=== PATIENT | female | born 1945 | race Caucasian/White ===

== ENCOUNTER 2016-07-20 10:28 | Outpatient (CLI) | payer MEDICARE, OTHER | END 2016-07-20 10:29 | disposition home or self-care (01) | DX: E11.29 Type 2 diabetes mellitus with other diabetic kidney complication (principal); E78.1 Pure hyperglyceridemia ==

== ENCOUNTER 2016-08-04 15:06 | Outpatient (CLI) | payer MEDICARE, OTHER | END 2016-08-04 15:07 | disposition home or self-care (01) | DX: N18.3 Chronic kidney disease, stage 3 (moderate) (principal); Q61.02 Congenital multiple renal cysts ==

== ENCOUNTER 2017-04-02 15:26 | Emergency (ER) | payer MEDICARE, OTHER ==
[2017-04-02] MEDS ORDERED: SODIUM CHLORIDE 0.9% 1,000 ML IV ONE (16:22)
[2017-04-02] MEDS ORDERED: HYDROmorphone 1 MG/ML SYRINGE IVP STA (16:22)
[2017-04-02 16:24] LABS: BASOPHILS # (AUTO) 0.1 10^3/uL (0.0-0.1); BASOPHILS % (AUTO) 0.9 %; EOSINOPHILS # (AUTO) 0.2 10^3/uL (0.0-0.7); HCT - HEMATOCRIT 37.6 % (37.0-47.0); HGB - HEMOGLOBIN 12.6 g/dL (12.0-16.0); LYMPHOCYTES # (AUTO) 2.5 10^3/uL (1.5-3.5); LYMPHOCYTES % (AUTO) 23.1 %; MEAN CORPUSCULAR HEMOGLOBIN 30.6 pg (27.0-31.0); MEAN CORPUSCULAR HGB CONC 33.5 g/dL (32.0-36.0); MEAN CORPUSCULAR VOLUME 91.4 fL (81.0-99.0); MEAN PLATELET VOLUME 9.2 fL (7.9-10.8); MONOCYTES # (AUTO) 0.8 10^3/uL (0.0-1.0); MONOCYTES % (AUTO) 7.8 %; NEUTROPHILS # (AUTO) 7.2 10^3/uL (1.5-6.6); NEUTROPHILS % (AUTO) 66.2 %; NUCLEATED RED BLOOD CELLS AUTO 0.1 /100WBC; RED BLOOD COUNT 4.12 10^6/uL (4.20-5.40); RED CELL DISTRIBUTION WIDTH 12.8 % (12.0-15.0); UNCORRECTED WHITE BLOOD COUNT 10.8 x10^3/uL; WHITE BLOOD COUNT 10.8 x10^3/uL (4.8-10.8)
--- NOTE | 2017-04-02 16:24 | ED Physician Documentation ---
PD HPI ABD PAIN - Stated complaint Stated Complaint: ABD PX - Chief complaint Chief Complaint: Abd Pain - History obtained from History obtained from: Patient, Family - History of Present Illness Timing - onset: How many days ago (3) Timing - duration: Days (3) Timing - details: Gradual onset Pain level max: 8 Pain level now: 8 Quality: Aching, Pain Location: RUQ, Epigastric, RLQ Radiation: Other (non-radiating) Improved by: Laying still Worsened by: Eating, Moving, Palpation Associated symptoms: Nausea. No: Fever, Vomiting, Hematemesis, Diarrhea, Constipation, Melena, Hematochezia, Dysuria, Hematuria Similar symptoms before: Has not had sx before Recently seen: Not recently seen - Additional information Additional information: states had her appendix removed years ago. Still has her GB. Review of Systems Ten Systems: 10 systems reviewed and negative Constitutional: denies: Fever, Chills Ears: denies: Ear pain Nose: denies: Rhinorrhea / runny nose, Congestion Throat: denies: Sore throat Cardiac: denies: Chest pain / pressure Respiratory: denies: Cough GI: denies: Nausea, Vomiting, Diarrhea Skin: denies: Rash Musculoskeletal: denies: Neck pain, Back pain Neurologic: denies: Headache PD PAST MEDICAL HISTORY - Past Medical History Cardiovascular: Hypertension, High cholesterol Respiratory: None Endocrine/Autoimmune: Type 2 diabetes, HyPOthyroidism GI: GERD, Other : None Psych: Depression, Anxiety, Panic attacks, Claustrophobia Other Past Medical History: IBS - Past Surgical History 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 - Present Medications Home Medications: Ambulatory Orders Medication Instructions Recorded Confirmed Atenolol 100 mg PO DAILY 01/02/15 04/02/17 Fluoxetine HCl [Prozac] 40 mg PO DAILY 01/02/15 04/02/17 Insulin NPH Hum/Reg Insulin Hm 45 units SQ DAILY 01/02/15 04/02/17 [Novolin 70-30 100 Unit/ml Vial] Levothyroxine [Synthroid] 100 mcg PO DAILY 01/02/15 04/02/17 Lisinopril 20 mg PO DAILY 01/02/15 04/02/17 Omeprazole [PriLOSEC] 20 mg PO DAILY 01/02/15 04/02/17 Promethazine [Phenergan] 25 mg PO DAILY PRN 01/02/15 04/02/17 Rosuvastatin Calcium [Crestor] 20 mg PO DAILY 01/02/15 04/02/17 traMADol [Ultram] 50 mg PO DAILY 01/02/15 04/02/17 Hydrocodone/Acetaminophen 1 - 2 each PO Q6H PRN #14 tablet 04/02/17 [Hydrocodon-Acetaminophen 5-325] - Allergies Allergies/Adverse Reactions: Allergies Allergy/AdvReac Type Severity Reaction Status Date / Time oxycodone HCl * Allergy Intermediate Hallucinati Verified 04/02/17 15:38 [From Percocet] ons sulfamethoxazole Allergy Unknown Verified 04/02/17 15:38 [From Bactrim] trimethoprim [From Bactrim] Allergy Unknown Verified 04/02/17 15:38 - Social History Does the pt smoke?: No Smoking Status: Former smoker Does the pt drink ETOH?: Yes Does the pt have substance abuse?: No - Immunizations Immunizations are current?: Yes - POLST Patient has POLST: No PD ED PE NORMAL - Vitals Vital signs reviewed: Yes - General General: Alert and oriented X 3, No acute distress, Well developed/nourished - HEENT HEENT: PERRL, Moist mucous membranes - Neck Neck: Supple, no meningeal sign - Cardiac Cardiac: RRR, Strong equal pulses - Respiratory Respiratory: No respiratory distress, Clear bilaterally - Abdomen Abdomen: Normal bowel sounds, Soft, Non distended, Other (TTP RUQ, epigastric and RLQ. +diaz's sign. ) - Back Back: No CVA TTP - Derm Derm: Warm and dry, No rash - Extremities Extremities: No edema - Neuro Neuro: Alert and oriented X 3 - Psych Psych: Normal mood, Normal affect Results - Vitals Vitals: Vital Signs - 24 hr 04/02/17 04/02/17 15:32 18:01 Temperature 36.5 C Heart Rate 60 55 L Respiratory 15 16 Rate Blood Pressure 146/59 H 116/37 L O2 Saturation 97 97 Oxygen O2 Source Room air - Labs Labs: Laboratory Tests 04/02/17 04/02/17 16:05 16:05 WBC 10.8 RBC 4.12 L Hgb 12.6 Hct 37.6 MCV 91.4 MCH 30.6 MCHC 33.5 RDW 12.8 Plt Count 253 MPV 9.2 Neut # 7.2 H Lymph # 2.5 [place] # 0.8 Eos # 0.2 Baso # 0.1 Absolute Nucleated RBC 0.01 Nucleated RBC % 0.1 Sodium 135 Potassium 4.3 Chloride 98 L Carbon Dioxide 25 Anion Gap 12.0 BUN 28 H Creatinine 1.8 H Estimated GFR (MDRD) 28 L Glucose 169 H Calcium 9.6 Total Bilirubin 0.5 AST 24 ALT 18 Alkaline Phosphatase 35 L Total Protein 7.3 Albumin 4.0 Globulin 3.3 Albumin/Globulin Ratio 1.2 Lipase 31 - Rads (name of study) CT abd/pelvis Radiology: Prelim report reviewed, EMP read contemporaneously, See rad report ( Diverticulosis. There is a small inflammatory focus along the antimesenteric side of the proximal transverse colon. This most likely represents epiploic appendagitis given absence of transverse colon diverticula. No bowel obstruction or fluid collections. No urinary tract stones or obstruction. ) PD MEDICAL DECISION MAKING - ED course Complexity details: reviewed results, re-evaluated patient, considered differential, d/w patient, d/w family ED course: Patient is a 71-year-old female who presents to the emergency department with right-sided abdominal pain for the past several days. Appears to have epiploic appendage otitis on CT scan. No acute laboratory findings. Repeat evaluation after pain medication revealed pinpoint tenderness in the right abdomen. Tolerating p.o. without difficulty. She is well-appearing, nontoxic. Afebrile. Patient and family counseled regarding signs and symptoms for which I believe and urgent re-evaluation would be necessary. Patient with good understanding of and agreement to plan and is comfortable going home at this time This document was made in part using voice recognition software. While efforts are made to proofread this document, sound alike and grammatical errors may occur. Departure - Departure Disposition: 01 Home, Self Care Clinical Impression: Epiploic appendagitis Condition: Good Instructions: ED Abdominal Pain Unkn Cause Follow-Up: Tristen Richardson DO [Primary Care Provider] - Within 1 week Prescriptions: Hydrocodone/Acetaminophen [Hydrocodon-Acetaminophen 5-325] 1 - 2 each PO Q6H PRN #14 tablet PRN Reason: pain Comments: Return if you worsen. This may continue to hurt for several days. Do not drink alcohol or drive while on narcotic pain medicine. Note that many narcotic pain relievers also contain tylenol/acetaminophen. Please ensure that your total dose of acetaminophen from all sources does not exceed 3 grams (3000mg) per day. You may constipated on this medication, take a stool softener such as "Colace" twice a day while you are on it. Also recommend a [id number] laxative such as senna or MiraLAX any day that you do not have a bowel movement. If you received narcotic pain medication in the emergency department, do not drive or operate machinery for the next 24 hours. Discharge Date/Time: 04/02/17 18:07
[2017-04-02] MEDS ORDERED: IOPAMIDOL-300 100 ML VIAL ONE (16:29)
[2017-04-02 16:35] LABS: ALBUMIN/GLOBULIN RATIO 1.2 (1.0-2.2); BILIRUBIN,TOTAL 0.5 mg/dL (0.2-1.0); CALCIUM 9.6 mg/dL (8.5-10.3); CREATININE 1.8 mg/dL (0.4-1.0); POTASSIUM 4.3 mmol/L (3.5-5.0); TOTAL PROTEIN 7.3 g/dL (6.7-8.2)
[2017-04-02] MEDS ORDERED: HYDROmorphone 1 MG/ML SYRINGE ONE (16:39)
--- NOTE | 2017-04-02 17:22 | CT Preliminary Report ---
Exam: CT ABDOMEN/PELVIS W/O IMPRESSION: 1. Diverticulosis. 2. There is a small inflammatory focus along the antimesenteric side of the proximal transverse colon . This most likely represents epiploic appendagitis given absence of transverse colon diverticula. 3. No bowel obstruction or fluid collections. 4. No urinary tract stones or obstruction. [facility] SITE ID: [id number]
--- NOTE | 2017-04-02 17:25 | CT Report ---
EXAM: CT ABDOMEN AND PELVIS (CT KUB) EXAM DATE: 04/02/2017 04:58 PM. CLINICAL HISTORY: R sided abd pain x 3 days. COMPARISONS: None. TECHNIQUE: Routine axial helical CT imaging was performed through the abdomen and pelvis without IV c ontrast. Reconstructions: Coronal and sagittal. In accordance with CT protocol optimization, one or more of the following dose reduction techniques w ere utilized for this exam: automated exposure control, adjustment of mA and/or KV based on patient s ize, or use of iterative reconstructive technique. FINDINGS: Lung Bases: Unremarkable. Right Kidney/Ureter: No stones, hydronephrosis, or hydroureter. No perinephric fat stranding. Left Kidney/Ureter: There is a 2.6 cm cyst at the lower pole of the left kidney. No stones or hydrone phrosis. Other Solid Organs: Noncontrast images of the solid organs are grossly unremarkable. Gallbladder/Bile Ducts: Unremarkable. Peritoneal Cavity: Left colon diverticulosis. There is a small focus of inflammatory stranding along the anterior margin of the proximal descending colon however no transverse colon diverticulosis seen. This is most likely secondary to epiploic appendagitis. Pelvic Organs: No bladder stones or wall thickening. Noncontrast images of the visualized pelvic orga ns are unremarkable. Vasculature: Unremarkable. Other: None. IMPRESSION: 1. Diverticulosis. 2. There is a small inflammatory focus along the antimesenteric side of the proximal transverse colon . This most likely represents epiploic appendagitis given absence of transverse colon diverticula. 3. No bowel obstruction or fluid collections. 4. No urinary tract stones or obstruction. [facility] Referring Provider Line: [phone] SITE ID: [id number]
[2017-04-02 18:03] VITALS: BP 116/37
== END 2017-04-02 18:07 | disposition home or self-care (01) ==
LOC: ED 15:26
DX: K63.89 Other specified diseases of intestine (principal); I10 Essential (primary) hypertension; E78.00 Pure hypercholesterolemia, unspecified; E11.9 Type 2 diabetes mellitus without complications; E03.9 Hypothyroidism, unspecified; Z79.4 Long term (current) use of insulin
CPT/HCPCS: 36415; 74176; 80053; 83690; 85025; 96374; 99283; J1170; Q9967

== ENCOUNTER 2017-05-05 09:31 | Outpatient (CLI) | payer MEDICARE, OTHER | END 2017-05-05 09:32 | disposition home or self-care (01) | LOC: LAB.WCP 09:31 | PROVIDERS: ATTEND Family Medicine | DX: E03.9 Hypothyroidism, unspecified (principal) | CPT/HCPCS: 36415; 81599; 84439; 84443 ==

== ENCOUNTER 2017-08-04 08:00 | Outpatient (CLI) | payer MEDICARE, OTHER ==
[2017-08-04 14:07] LABS: BASOPHILS # (AUTO) 0.1 10^3/uL (0.0-0.1); BASOPHILS % (AUTO) 1.3 %; EOSINOPHILS # (AUTO) 0.3 10^3/uL (0.0-0.7); EOSINOPHILS % (AUTO) 3.8 %; HGB - HEMOGLOBIN 12.6 g/dL (12.0-16.0); LYMPHOCYTES # (AUTO) 2.4 10^3/uL (1.5-3.5); LYMPHOCYTES % (AUTO) 29.2 %; MEAN CORPUSCULAR HEMOGLOBIN 30.4 pg (27.0-31.0); MEAN CORPUSCULAR HGB CONC 33.6 g/dL (32.0-36.0); MEAN CORPUSCULAR VOLUME 90.5 fL (81.0-99.0); MEAN PLATELET VOLUME 9.7 fL (7.9-10.8); MONOCYTES # (AUTO) 0.7 10^3/uL (0.0-1.0); MONOCYTES % (AUTO) 8.3 %; NEUTROPHILS # (AUTO) 4.6 10^3/uL (1.5-6.6); NEUTROPHILS % (AUTO) 57.4 %; PLT - PLATELET COUNT 233 10^3/uL (130-450); RED BLOOD COUNT 4.14 10^6/uL (4.20-5.40); RED CELL DISTRIBUTION WIDTH 13.1 % (12.0-15.0); WHITE BLOOD COUNT 8.1 x10^3/uL (4.8-10.8)
[2017-08-04 14:18] LABS: HB2 TOTAL 13.5 g/dL; HEMOGLOBIN A1C 0.77 g/dL; HEMOGLOBIN A1C % 7.4 % (4.6-6.2)
[2017-08-04 14:28] LABS: ALBUMIN/GLOBULIN RATIO 1.3 (1.0-2.2); ALKALINE PHOSPHATASE 39 IU/L (42-121); ALT ALANINE AMINOTRANSFERASE 32 IU/L (10-60); AST ASPARTATE AMINOTRANSFERASE 36 IU/L (10-42); BILIRUBIN,TOTAL 0.5 mg/dL (0.2-1.0); BUN - BLOOD UREA NITROGEN 29 mg/dL (6-20); CALCIUM 9.1 mg/dL (8.5-10.3); CARBON DIOXIDE - CO2 25 mmol/L (21-32); CHLORIDE 99 mmol/L (101-111); CHOL/HDL RATIO 8.1 (<4.4); CHOLESTEROL 186 mg/dL; CREATININE 1.7 mg/dL (0.4-1.0); GFR - MDRD 30 (>89); GLUCOSE 83 mg/dL (70-100); HDL CHOLESTEROL 23 mg/dL; LDL CHOLESTEROL,CALCULATED 118 mg/dL; LDL/HDL RATIO 5.1 (<4.4); SODIUM 133 mmol/L (135-145); TOTAL PROTEIN 7.1 g/dL (6.7-8.2); VLDL CHOLESTEROL 45 mg/dL
[2017-08-04 14:30] LABS: THYROID STIMULATING HORMONE 0.12 uIU/mL (0.34-5.60)
[2017-08-04 15:04] LABS: FREE T4 (FREE THYROXINE) 1.21 ng/dL (0.58-1.64)
== END 2017-08-04 08:01 | disposition home or self-care (01) ==
LOC: LAB.WCP 08:00
PROVIDERS: ATTEND Family Medicine
DX: E11.29 Type 2 diabetes mellitus with other diabetic kidney complication (principal)
CPT/HCPCS: 36415; 80053; 80061; 83036; 83721; 84439; 84443; 85025

== ENCOUNTER 2017-10-17 12:15 | Outpatient (CLI) | payer MEDICARE, OTHER ==
[2017-10-17 19:37] LABS: CALCIUM 9.2 mg/dL (8.5-10.3)
[2017-10-17 19:59] LABS: HB2 TOTAL 13.6 g/dL; HEMOGLOBIN A1C 0.73 g/dL; HEMOGLOBIN A1C % 7.1 % (4.6-6.2)
== END 2017-10-17 12:16 ==
LOC: LAB.WCP 12:15
PROVIDERS: ATTEND Family Medicine
DX: E11.29 Type 2 diabetes mellitus with other diabetic kidney complication (principal)
CPT/HCPCS: 36415; 80048; 82043; 83036

== ENCOUNTER 2017-12-04 08:00 | Outpatient (CLI) | payer MEDICARE, OTHER ==
[2017-12-04 19:03] LABS: HGB - HEMOGLOBIN 12.5 g/dL (12.0-16.0); MEAN CORPUSCULAR HEMOGLOBIN 30.4 pg (27.0-31.0); MEAN PLATELET VOLUME 10.2 fL (7.9-10.8); RED BLOOD COUNT 4.13 10^6/uL (4.20-5.40); RED CELL DISTRIBUTION WIDTH 13.5 % (12.0-15.0); WHITE BLOOD COUNT 11.5 x10^3/uL (4.8-10.8)
[2017-12-04 19:13] LABS: CALCIUM 9.3 mg/dL (8.5-10.3); CREATININE 1.8 mg/dL (0.4-1.0)
[2017-12-04 19:18] LABS: CREATININE,URINE 77.2 mg/dL; PROTEIN/CREATININE RATIO,URINE 0.1 (<=0.2)
== END 2017-12-04 08:01 | disposition home or self-care (01) ==
LOC: LAB.WCP 08:00
PROVIDERS: ATTEND Internal Medicine Nephrology
DX: D70.9 Neutropenia, unspecified (principal); D63.1 Anemia in chronic kidney disease; N05.9 Unspecified nephritic syndrome with unspecified morphologic changes; R80.9 Proteinuria, unspecified
CPT/HCPCS: 36415; 80048; 82570; 84156; 85027

== ENCOUNTER 2018-02-02 13:40 | Outpatient (CLI) | payer MEDICARE, OTHER ==
[2018-02-02 19:01] LABS: CALCIUM 9.1 mg/dL (8.5-10.3); CREATININE 1.7 mg/dL (0.4-1.0); PHOSPHORUS 3.8 mg/dL (2.5-4.6)
[2018-02-02 19:05] LABS: TOTAL PROTEIN,URINE TIMED < 6 mg/dL
[2018-02-06 13:51] LABS: COMPLEMENT COMPONENT C3C 163 mg/dL (83-193); COMPLEMENT COMPONENT C4C 29 mg/dL (15-57)
[2018-02-06 23:43] LABS: ALBUMIN 4.1 g/dL (3.8-4.8); ALPHA 1 GLOBULIN 0.3 g/dL (0.2-0.3); ALPHA 2 GLOBULIN 0.8 g/dL (0.5-0.9); BETA 1 GLOBULIN 0.6 g/dL (0.4-0.6); BETA 2 GLOBULIN 0.4 g/dL (0.2-0.5); GAMMA GLOBULIN 0.8 g/dL (0.8-1.7)
== END 2018-02-02 13:41 | disposition home or self-care (01) ==
LOC: LAB.WCP 13:40
PROVIDERS: ATTEND Internal Medicine Nephrology
DX: N05.9 Unspecified nephritic syndrome with unspecified morphologic changes (principal); D89.89 Other specified disorders involving the immune mechanism, not elsewhere classified; R80.9 Proteinuria, unspecified; D47.2 Monoclonal gammopathy; E83.30 Disorder of phosphorus metabolism, unspecified; N25.81 Secondary hyperparathyroidism of renal origin
CPT/HCPCS: 36415; 80048; 81599; 82570; 83883; 83970; 84100; 84155; 84156; 84165; 86160; 86334

== ENCOUNTER 2018-05-24 09:20 | Outpatient (CLI) | payer MEDICARE, OTHER ==
[2018-05-24 13:47] LABS: BASOPHILS # (AUTO) 0.1 10^3/uL (0.0-0.1); BASOPHILS % (AUTO) 1.2 %; EOSINOPHILS # (AUTO) 0.2 10^3/uL (0.0-0.7); EOSINOPHILS % (AUTO) 2.2 %; HGB - HEMOGLOBIN 12.8 g/dL (12.0-16.0); LYMPHOCYTES # (AUTO) 2.7 10^3/uL (1.5-3.5); LYMPHOCYTES % (AUTO) 25.7 %; MEAN CORPUSCULAR HEMOGLOBIN 30.4 pg (27.0-31.0); MEAN CORPUSCULAR VOLUME 89.3 fL (81.0-99.0); MEAN PLATELET VOLUME 9.8 fL (7.9-10.8); MONOCYTES # (AUTO) 0.7 10^3/uL (0.0-1.0); MONOCYTES % (AUTO) 6.5 %; NEUTROPHILS # (AUTO) 6.7 10^3/uL (1.5-6.6); NEUTROPHILS % (AUTO) 64.4 %; PLT - PLATELET COUNT 295 10^3/uL (130-450); RED BLOOD COUNT 4.21 10^6/uL (4.20-5.40); RED CELL DISTRIBUTION WIDTH 13.1 % (12.0-15.0); WHITE BLOOD COUNT 10.4 x10^3/uL (4.8-10.8)
[2018-05-24 14:06] LABS: HB2 TOTAL 13.7 g/dL; HEMOGLOBIN A1C 0.69 g/dL; HEMOGLOBIN A1C % 6.8 % (4.6-6.2)
[2018-05-24 14:14] LABS: ALBUMIN 4.1 g/dL (3.2-5.5); ALBUMIN/GLOBULIN RATIO 1.3 (1.0-2.2); ALKALINE PHOSPHATASE 48 IU/L (42-121); ALT ALANINE AMINOTRANSFERASE 33 IU/L (10-60); AST ASPARTATE AMINOTRANSFERASE 45 IU/L (10-42); BILIRUBIN,TOTAL 0.8 mg/dL (0.2-1.0); BUN - BLOOD UREA NITROGEN 31 mg/dL (6-20); CALCIUM 9.3 mg/dL (8.5-10.3); CARBON DIOXIDE - CO2 24 mmol/L (21-32); CHLORIDE 103 mmol/L (101-111); CHOL/HDL RATIO 7.9 (<4.4); CHOLESTEROL 198 mg/dL; CREATININE 1.6 mg/dL (0.4-1.0); GFR - MDRD 32 (>89); GLUCOSE 108 mg/dL (70-100); HDL CHOLESTEROL 25 mg/dL; LDL CHOLESTEROL,CALCULATED 135 mg/dL; LDL/HDL RATIO 5.4 (<4.4); SODIUM 136 mmol/L (135-145); TOTAL PROTEIN 7.2 g/dL (6.7-8.2); VLDL CHOLESTEROL 38 mg/dL
== END 2018-05-24 23:59 | disposition home or self-care (01) ==
LOC: LAB.WCP 09:20
PROVIDERS: ATTEND Family Medicine
DX: I10 Essential (primary) hypertension (principal); E11.29 Type 2 diabetes mellitus with other diabetic kidney complication; E78.1 Pure hyperglyceridemia
CPT/HCPCS: 36415; 80053; 80061; 82043; 83036; 83721; 84443; 85025

== ENCOUNTER 2018-06-05 12:01 | Outpatient (CLI) | payer MEDICARE, OTHER ==
[2018-06-05 19:23] LABS: CRP - C-REACTIVE PROTEIN < 1.0 mg/dL (0-1.0)
== END 2018-06-05 23:59 | disposition home or self-care (01) ==
LOC: LAB.WCP 12:01
PROVIDERS: ATTEND Family Medicine
DX: R51 Headache (principal); I10 Essential (primary) hypertension
CPT/HCPCS: 36415; 83735; 85651; 86140

== ENCOUNTER 2018-07-24 08:00 | Outpatient (CLI) | payer MEDICARE, OTHER | END 2018-07-24 23:59 | disposition home or self-care (01) | LOC: LAB.WCP 08:00 | PROVIDERS: ATTEND Family Medicine | DX: R30.0 Dysuria (principal) | CPT/HCPCS: 81002 ==

== ENCOUNTER 2018-08-14 18:48 | Emergency (ER) | payer MEDICARE, OTHER ==
[2018-08-14 19:50] LABS: BASOPHILS # (AUTO) 0.1 10^3/uL (0.0-0.1); BASOPHILS % (AUTO) 0.8 %; EOSINOPHILS # (AUTO) 0.4 10^3/uL (0.0-0.7); HGB - HEMOGLOBIN 12.9 g/dL (12.0-16.0); LYMPHOCYTES # (AUTO) 1.9 10^3/uL (1.5-3.5); LYMPHOCYTES % (AUTO) 15.7 %; MEAN CORPUSCULAR HEMOGLOBIN 29.5 pg (27.0-31.0); MEAN CORPUSCULAR HGB CONC 32.8 g/dL (32.0-36.0); MEAN CORPUSCULAR VOLUME 90.1 fL (81.0-99.0); MEAN PLATELET VOLUME 9.4 fL (7.9-10.8); MONOCYTES # (AUTO) 1.1 10^3/uL (0.0-1.0); MONOCYTES % (AUTO) 9.5 %; NEUTROPHILS # (AUTO) 8.5 10^3/uL (1.5-6.6); PLT - PLATELET COUNT 311 10^3/uL (130-450); RED BLOOD COUNT 4.35 10^6/uL (4.20-5.40); RED CELL DISTRIBUTION WIDTH 14.1 % (12.0-15.0)
[2018-08-14 20:01] LABS: ALBUMIN 4.2 g/dL (3.2-5.5); ALBUMIN/GLOBULIN RATIO 1.2 (1.0-2.2); BILIRUBIN,TOTAL 0.6 mg/dL (0.2-1.0); CREATININE 1.7 mg/dL (0.4-1.0); TOTAL PROTEIN 7.8 g/dL (6.7-8.2)
--- NOTE | 2018-08-14 20:04 | XRAY Report ---
Reason: chest pain Procedure Date: 08/14/2018 Accession Number: [id number] / [id number] Procedure: XR - Chest 1 View X-Ray CPT Code: 84441 FULL RESULT: EXAM: CHEST RADIOGRAPHY EXAM DATE: 08/14/2018 07:36 PM. CLINICAL HISTORY: Chest pain. COMPARISON: None. TECHNIQUE: 1 view. FINDINGS: Lungs/Pleura: No localized infiltrate, consolidation, effusion, or pneumothorax. Mediastinum: Within exam limitations, the cardiomediastinal contour is normal. Upper lobe vessels not distended. Other: Osteopenia, degenerative changes. IMPRESSION: No acute disease. [facility]
[2018-08-14] MEDS ORDERED: ACETAMINOPHEN 500 MG TABLET PO STA (20:46)
[2018-08-14] MEDS ORDERED: KETOROLAC 15 MG/ML VIAL IM STA (20:46)
[2018-08-14] MEDS ORDERED: DEXAMETHASONE 10 MG/ML VIAL PO STA (20:46)
[2018-08-14] MEDS ORDERED: LIDOCAINE 1% 2 ML VIAL SUBQ STA (20:46)
[2018-08-14] MEDS ORDERED: diazePAM 5 MG TABLET PO STA (20:46)
[2018-08-14] MEDS ORDERED: FAMOTIDINE 20 MG TABLET PO STA (20:47)
[2018-08-14] MEDS ORDERED: CHERRY SYRUP 10 ML UDC PO ONE (20:58)
--- NOTE | 2018-08-14 21:08 | ED Physician Documentation ---
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 - Present Medications Home Medications: Ambulatory Orders Medication Instructions Recorded Confirmed Atenolol 100 mg PO DAILY 01/02/15 04/02/17 Fluoxetine HCl [Prozac] 40 mg PO DAILY 01/02/15 04/02/17 Insulin NPH Hum/Reg Insulin Hm 45 units SQ DAILY 01/02/15 04/02/17 [Novolin 70-30 100 Unit/ml Vial] Levothyroxine [Synthroid] 100 mcg PO DAILY 01/02/15 04/02/17 Lisinopril 20 mg PO DAILY 01/02/15 04/02/17 Omeprazole [PriLOSEC] 20 mg PO DAILY 01/02/15 04/02/17 Promethazine [Phenergan] 25 mg PO DAILY PRN 01/02/15 04/02/17 Rosuvastatin Calcium [Crestor] 20 mg PO DAILY 01/02/15 04/02/17 traMADol [Ultram] 50 mg PO DAILY 01/02/15 04/02/17 Hydrocodone/Acetaminophen 1 - 2 each PO Q6H PRN #14 tablet 04/02/17 [Hydrocodon-Acetaminophen 5-325] Acetaminophen [Tylenol Extra 1,000 mg PO TID #60 tablet 08/14/18 Strength] Ibuprofen [Ibu] 600 mg PO TID #60 tablet 08/14/18 Lidocaine Patch 5% [Lidoderm Patch] 1 patch TOP DAILY PRN #10 patch 08/14/18 - Allergies Allergies/Adverse Reactions: Allergies Allergy/AdvReac Type Severity Reaction Status Date / Time oxycodone HCl * Allergy Intermediate Hallucinati Verified 04/02/17 15:38 [From Percocet] ons sulfamethoxazole Allergy Unknown Verified 04/02/17 15:38 [From Bactrim] trimethoprim [From Bactrim] Allergy Unknown Verified 04/02/17 15:38 - Social History Does the pt smoke?: No Smoking Status: Former smoker Does the pt drink ETOH?: Yes Does the pt have substance abuse?: No - Immunizations Immunizations are current?: Yes - POLST Patient has POLST: No Results - Vitals Vitals: Vital Signs - 24 hr 08/14/18 19:19 Temperature 36.8 C Heart Rate 66 Respiratory 18 Rate Blood Pressure 163/51 H O2 Saturation 97 Oxygen O2 Source Room air - Labs Labs: Laboratory Tests 08/14/18 08/14/18 08/14/18 19:42 19:42 19:42 WBC 12.0 H RBC 4.35 Hgb 12.9 Hct 39.2 MCV 90.1 MCH 29.5 MCHC 32.8 RDW 14.1 Plt Count 311 MPV 9.4 Neut # (Auto) 8.5 H Lymph # (Auto) 1.9 [place] # (Auto) 1.1 H Eos # (Auto) 0.4 Baso # (Auto) 0.1 Absolute Nucleated RBC 0.01 Nucleated RBC % 0.1 Sodium 135 Potassium 4.3 Chloride 98 L Carbon Dioxide 26 Anion Gap 11.0 BUN 25 H Creatinine 1.7 H Estimated GFR (MDRD) 29 L Glucose 170 H Calcium 9.0 Total Bilirubin 0.6 AST 41 ALT 25 Alkaline Phosphatase 52 Troponin I < 0.04 Total Protein 7.8 Albumin 4.2 Globulin 3.6 Albumin/Globulin Ratio 1.2 Lipase 49 Departure - Departure Disposition: 01 Home, Self Care Clinical Impression: Cervical strain, acute Qualifiers: Encounter type: initial encounter Qualified Code(s): S16.1XXA - Strain of muscle, fascia and tendon at neck level, initial encounter Condition: Stable Instructions: ED Sprain Strain Neck Follow-Up: Tristen Richardson DO [Primary Care Provider] - Prescriptions: Acetaminophen [Tylenol Extra Strength] 1,000 mg PO TID #60 tablet Ibuprofen [Ibu] 600 mg PO TID #60 tablet Lidocaine Patch 5% [Lidoderm Patch] 1 patch TOP DAILY PRN #10 patch PRN Reason: pain Comments: Follow-up with PCP within 24 hours. Return with worsening symptoms.
[2018-08-14 21:10] VITALS: BP 182/56
== END 2018-08-14 21:15 | disposition home or self-care (01) ==
LOC: ED 18:48
DX: S16.1XXA Strain of muscle, fascia and tendon at neck level, initial encounter (principal); X58.XXXA Exposure to other specified factors, initial encounter; I10 Essential (primary) hypertension; E78.00 Pure hypercholesterolemia, unspecified; E03.9 Hypothyroidism, unspecified; E11.9 Type 2 diabetes mellitus without complications; Z79.4 Long term (current) use of insulin; Z87.891 Personal history of nicotine dependence
CPT/HCPCS: 36415; 71045; 80053; 83690; 84484; 85025; 93005; 96372; 99283; A9270

== ENCOUNTER 2019-01-23 08:00 | Outpatient (CLI) | payer MEDICARE, OTHER ==
[2019-01-23 18:55] LABS: HGB - HEMOGLOBIN 12.4 g/dL (12.0-16.0); MEAN CORPUSCULAR HEMOGLOBIN 30.5 pg (27.0-31.0); MEAN CORPUSCULAR HGB CONC 32.3 g/dL (32.0-36.0); MEAN CORPUSCULAR VOLUME 94.3 fL (81.0-99.0); MEAN PLATELET VOLUME 11.9 fL (7.9-10.8); RED BLOOD COUNT 4.07 10^6/uL (4.20-5.40); WHITE BLOOD COUNT 11.1 x10^3/uL (4.8-10.8)
[2019-01-23 19:14] LABS: CALCIUM 9.4 mg/dL (8.5-10.3); PHOSPHORUS 3.8 mg/dL (2.5-4.6)
== END 2019-01-23 23:59 | disposition home or self-care (01) ==
LOC: LAB.WCP 08:00
PROVIDERS: ATTEND Internal Medicine Nephrology
DX: N05.9 Unspecified nephritic syndrome with unspecified morphologic changes (principal); D70.9 Neutropenia, unspecified; D63.1 Anemia in chronic kidney disease; E83.30 Disorder of phosphorus metabolism, unspecified; N25.81 Secondary hyperparathyroidism of renal origin
CPT/HCPCS: 36415; 80048; 83970; 84100; 85027

== ENCOUNTER 2019-03-28 08:00 | Outpatient (CLI) | payer MEDICARE, OTHER ==
[2019-03-28 13:26] LABS: CREATININE,URINE 108.4 mg/dL; PROTEIN/CREATININE RATIO,URINE 0.3 (<=0.2)
[2019-03-28 13:32] LABS: HB2 TOTAL 12.8 g/dL; HEMOGLOBIN A1C 0.61 g/dL; HEMOGLOBIN A1C % 6.5 % (4.6-6.2)
== END 2019-03-28 23:59 | disposition home or self-care (01) ==
LOC: LAB.WCP 08:00
PROVIDERS: ATTEND Family Medicine
DX: E11.29 Type 2 diabetes mellitus with other diabetic kidney complication (principal)
CPT/HCPCS: 36415; 82570; 83036; 84156

== ENCOUNTER 2019-04-04 14:16 | Outpatient (CLI) | payer MEDICARE, OTHER ==
--- NOTE | 2019-04-05 14:37 | XRAY Report ---
Reason: CHEST PAIN Procedure Date: 04/04/2019 Accession Number: [id number] / [id number] Procedure: WCP - Chest 2 View X-Ray CPT Code: 10255 Final Report FULL RESULT: EXAM: CHEST RADIOGRAPHY EXAM DATE: 04/04/2019 03:23 PM. CLINICAL HISTORY: CHEST PAIN. COMPARISON: CHEST 1 VIEW 08/14/2018 7:31 PM. TECHNIQUE: 2 views. FINDINGS: Lungs/Pleura: No focal opacities evident. No pleural effusion. No pneumothorax. Normal volumes. Mediastinum: Heart and mediastinal contours are unremarkable. Other: None. IMPRESSION: No acute cardiopulmonary process. [facility]
--- NOTE | 2019-04-05 14:50 | XRAY Report ---
Reason: SOMATIC DYSFUNCTION CERVICAL SPINE Procedure Date: 04/04/2019 Accession Number: [id number] / [id number] Procedure: WCP - Cervical Spine 2 View CPT Code: Final Report FULL RESULT: EXAM: CERVICAL SPINE RADIOGRAPHY, 3 VIEWS EXAM DATE: 04/04/2019 03:23 PM. CLINICAL HISTORY: Somatic dysfunction cervical spine in a 73-year-old female. COMPARISONS: ESOPHAGRAM 01/30/2015 10:32 AM. TECHNIQUE: AP, lateral and odontoid views. FINDINGS: Alignment: Normal. No spondylolisthesis or scoliosis. Bones: The cervical vertebral bodies and posterior elements are well visualized from the skull base through C7-T1. No fractures or bone lesions. Disks: Moderate disk space narrowing at C6-C7 with slight narrowing at C4-C5. Facets: Moderate to severe degenerative facet disease mid to lower cervical spine. Soft Tissues: Normal. No prevertebral soft tissue swelling. The visualized lung apices are clear. IMPRESSION: Mild to moderate degenerative disk disease mid to lower lumbar spine, worst at C6-C7, with moderate to severe degenerative facet disease lower cervical spine. Follow-up evaluation with MRI cervical spine without contrast should be considered for further assessment. [facility]
== END 2019-04-04 23:59 | disposition home or self-care (01) ==
LOC: DI.WCP 14:16
PROVIDERS: ATTEND Family Medicine
DX: R07.9 Chest pain, unspecified (principal); M50.321 Other cervical disc degeneration at C4-C5 level; M47.812 Spondylosis without myelopathy or radiculopathy, cervical region; L40.9 Psoriasis, unspecified; M25.50 Pain in unspecified joint
CPT/HCPCS: 36415; 71046; 72040; 84550; 85027; 85651; 86140; 86200; 86430

== ENCOUNTER 2019-05-09 09:44 | Outpatient (CLI) | payer MEDICARE, OTHER ==
[2019-05-09] MEDS ORDERED: REGADENOSON 0.4 MG/5 ML SYRINGE IVP ONE ×2 (12:02→14:12)
[2019-05-09] MEDS ORDERED: AMINOPHYLLINE 250 MG/10 ML VIAL ONE (12:02)
--- NOTE | 2019-05-09 14:06 | CARDIAC PROCEDURE NOTE ---
DATE OF SERVICE: 05/09/2019 Physician: Sherry King MD, [facility] INDICATION: Chest pain. CARDIAC RISK FACTORS: Postmenopausal status, Hypertension, Diabetes, Hyperlipidemia. DESCRIPTION OF PROCEDURE: After signing informed consent, patient underwent a Lexiscan pharmaceutical stress test with nuclear myocardial perfusion imaging. RESTING HEART RATE: 51. PEAK HEART RATE: 85. RESTING BLOOD PRESSURE: 151/59. PEAK BLOOD PRESSURE: 176/69. Her blood pressure then nadine during nausea and vomiting to 180/79 and 202/65 before improving. Lexiscan was infused per protocol. Patient developed brief flushing and significant nausea and vomiting. No shortness of breath, and no complaints of worsening of her "constant" mid-posterior thoracic chest pain. Oxygen saturation remained 95% to 96% during the entire stress portion. Aminophylline 25 mg IV was given twice for reversal of nausea and vomiting. At completion, patient had resolution of symptoms. RESTING EKG: Normal sinus rhythm, left atrial enlargement, LVH with left IVCD and with strain pattern. EKG AT PEAK: No new ST segment or T wave abnormalities. SUMMARY 1. Abnormal resting EKG. 2. No worsening of "constant chest pain in mid back" during Lexiscan stress. 3. Cannot comment on EKG changes since baseline EKG has abnormal ST segments diffusely. 4. Nuclear images reported separately. 5. This patient's cardiac risk based on EKG: Moderate-High. cc: Tristen Richardson DO TD: 05/09/2019 13:46 MTDD
--- NOTE | 2019-05-09 16:41 | Nuclear Medicine Report ---
Reason: CHEST PAIN Procedure Date: 05/09/2019 Accession Number: [id number] / [id number] Procedure: NM - Myocardial Perfusion STR/RST CPT Code: Final Report FULL RESULT: EXAM: SINGLE-ISOTOPE PHARMACOLOGICAL STRESS TEST WITH REGADENOSON. SINGLE-ISOTOPE AND ONE-DAY REST/STRESS MYOCARDIAL PERFUSION SCANS WITH TOMOGRAPHIC IMAGING, QUANTITATIVE ANALYSIS, WALL MOTION ANALYSIS AND CALCULATION OF EJECTION FRACTION. EXAM DATE: 05/09/2019 02:14 PM. CLINICAL HISTORY: Chest pain. COMPARISON: None available. TECHNIQUE: After the intravenous administration of 10.1 mCi of Tc-99m sestamibi, a rest myocardial perfusion scan was done with tomography. Motion correction was applied when appropriate. After an appropriate delay, pharmacological stress was performed with the infusion of 0.4 mg regadenoson per protocol. According to protocol, 43.3 mCi of Tc-99m sestamibi was injected for stress myocardial perfusion scan. Motion correction was applied when appropriate. Gated tomographic images were obtained for wall motion analysis and computation of left ventricular ejection fraction. FINDINGS: There is a mild severity fixed defect in the distal anteroseptal wall and anterior apex. There is a mild reversible defect in distal lateral wall. Visually corrected summed stress score 9. Visually corrected summed rest score 6. Visually corrected summed difference score 3. Wall motion analysis demonstrates no focal wall motion abnormality. The left ventricular end-diastolic volume is 42 cc. The left ventricular end-systolic volume is 5 cc. The left ventricular ejection fraction is calculated to be 87%. IMPRESSION: 1. Mild severity fixed defect in the distal anteroseptal wall and anterior apex. Small mild reversible defect in the distal lateral wall. 2. Left ventricular ejection fraction of greater than 65%. 3. Normal segmental and global wall motion. 4. Normal left ventricular cavity size, no change with stress. Please correlate findings with stress ECG tracings and procedure notes. [facility]
== END 2019-05-09 09:45 | disposition home or self-care (01) ==
LOC: DI 09:44
PROVIDERS: ATTEND Family Medicine
DX: R07.9 Chest pain, unspecified (principal); R94.31 Abnormal electrocardiogram [ECG] [EKG]
CPT/HCPCS: 78452; 93017; A9500; J2785

== ENCOUNTER 2020-01-07 13:51 | Outpatient (CLI) | payer MEDICARE, OTHER ==
[2020-01-07 18:44] LABS: ALBUMIN 4.2 g/dL (3.2-5.5); ALBUMIN/GLOBULIN RATIO 1.3 (1.0-2.2); ALKALINE PHOSPHATASE 35 IU/L (42-121); ALT ALANINE AMINOTRANSFERASE 25 IU/L (10-60); AST ASPARTATE AMINOTRANSFERASE 47 IU/L (10-42); BILIRUBIN,TOTAL 0.7 mg/dL (0.2-1.0); BUN - BLOOD UREA NITROGEN 34 mg/dL (6-20); CALCIUM 9.5 mg/dL (8.5-10.3); CARBON DIOXIDE - CO2 24 mmol/L (21-32); CHLORIDE 101 mmol/L (101-111); CHOL/HDL RATIO 5.9 (<4.4); CHOLESTEROL 184 mg/dL; CREATININE 1.6 mg/dL (0.4-1.0); GLUCOSE 87 mg/dL (70-100); HDL CHOLESTEROL 31 mg/dL; LDL CHOLESTEROL,CALCULATED 111 mg/dL; LDL/HDL RATIO 3.6 (<4.4); SODIUM 135 mmol/L (135-145); TOTAL PROTEIN 7.5 g/dL (6.7-8.2); VLDL CHOLESTEROL 42 mg/dL
[2020-01-07 18:51] LABS: BASOPHILS # (AUTO) 0.1 10^3/uL (0.0-0.1); BASOPHILS % (AUTO) 0.8 %; EOSINOPHILS # (AUTO) 0.3 10^3/uL (0.0-0.7); EOSINOPHILS % (AUTO) 2.7 %; HGB - HEMOGLOBIN 12.3 g/dL (12.0-16.0); LYMPHOCYTES # (AUTO) 2.5 10^3/uL (1.5-3.5); LYMPHOCYTES % (AUTO) 27.3 %; MEAN CORPUSCULAR HGB CONC 31.5 g/dL (32.0-36.0); MEAN CORPUSCULAR VOLUME 95.1 fL (81.0-99.0); MEAN PLATELET VOLUME 11.8 fL (7.9-10.8); MONOCYTES # (AUTO) 0.6 10^3/uL (0.0-1.0); MONOCYTES % (AUTO) 6.6 %; NEUTROPHILS # (AUTO) 5.7 10^3/uL (1.5-6.6); NEUTROPHILS % (AUTO) 62.3 %; PLT - PLATELET COUNT 260 10^3/uL (130-450); RED CELL DISTRIBUTION WIDTH 13.1 % (12.0-15.0); WHITE BLOOD COUNT 9.1 x10^3/uL (4.8-10.8)
[2020-01-07 19:04] LABS: HB2 TOTAL 13.3 g/dL; HEMOGLOBIN A1C 0.56 g/dL
[2020-01-07 19:34] LABS: FREE T4 (FREE THYROXINE) 2.12 ng/dL (0.58-1.64)
== END 2020-01-07 13:52 | disposition home or self-care (01) ==
LOC: LAB.WCP 13:51
PROVIDERS: ATTEND Family Medicine
DX: E11.22 Type 2 diabetes mellitus with diabetic chronic kidney disease (principal); N18.4 Chronic kidney disease, stage 4 (severe); E78.1 Pure hyperglyceridemia
CPT/HCPCS: 36415; 80053; 80061; 83036; 83721; 84439; 84443; 85025

== ENCOUNTER 2020-03-26 07:00 | Outpatient (CLI) | payer MEDICARE, OTHER | END 2020-03-26 23:59 | disposition home or self-care (01) | LOC: LAB.WCP 07:00 | PROVIDERS: ATTEND Family Medicine | DX: E03.9 Hypothyroidism, unspecified (principal) | CPT/HCPCS: 36415; 84443 ==

== ENCOUNTER 2020-06-02 14:56 | Outpatient (CLI) | payer MEDICARE, OTHER ==
[2020-06-02 15:54] VITALS: BP 148/62
--- NOTE | 2020-06-02 15:54 | SLEEP CARE CONSULTATION ---
Information from patient questionnaire entered by Barrera Buchanan. I have reviewed and concur with the information entered by Barrera Buchanan. This document represents the service I personally performed and the decisions made by me, Nelda Bridges ARNP. History of Present Illness Service Date and Time: 06/02/2020 1456 Reason for Visit: New patient Chief Complaint: reports: Insomnia, Unrefreshed sleep, Snoring (light, occasionally), Fatigue, Frequent awakenings at night. denies: Excessive daytime sleepiness, Observed pauses in breathing Usual bedtime: 11 Time it takes to fall asleep: 45 min Snores at night: Yes (rarely) Observed to quit breathing while asleep: No Sleeps alone due to snoring: No Number of times waking at night: 5 Reasons for waking at night: reports: Pain, Bathroom. denies: Choking, Snoring, Gasping for air Toss, Turn, or Twitch while sleeping: Yes Recalls having dreams: Yes Usually gets out of bed at: From 8-12 Feels refreshed in the morning: No Morning headache: Yes Sleepy or fatigued during the day: Yes (some) Ever fallen asleep while driving: No Takes day naps: No Prior sleep studies: No Additional HPI information: I had the pleasure of seeing SERGIO FELDMAN today with her spouse regarding the possibility of her having a sleep disorder. Her current complaints are insomnia, unrefreshed sleep, frequent night awakenings and fatigue. She has been having episodes where she has been seeing things that are not there and not really being present. She feels very weak and unable to move by herself and was shaking. These episodes have been between 15-45 minutes and has had about 3-4 episodes in the last 6 months. She rarely snores but has not had a pause in breathing. She does have diabetes but her sugars have been well controlled with an A1c of 7.0 for last 2 years. They did not check her blood sugars at the time of these episodes. - Parasomnia Symptoms Ever been unable to move upon waking from sleep: Yes (for just a seconde) Walks in sleep: No Talks in sleep: Yes Ever acted out dreams in sleep: No Ever felt weak in the knees when startled or emotional: Yes Bothered by creepy, crawly, restless sensations in legs: Yes Problems with memory or concentration: Yes (both) Subjective Initial [place] Sleepiness Scale score: 2 (in 2020) Past Medical History Past Medical History: reports: Hypertension, Diabetes, Arthritis, Hypothy roidism, Fibromyalgia, Anxiety, Depression, Mood disorder (can get really angry or really sad), GERD Social History 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 Patient is and lives in [place]. Have you smoked in the past 12 months: No Years of smokin Quit date: 1977 Alcohol use: Yes Alcohol amount and frequency: 1-2 times a year, rarely Caffeine use: Yes Caffeine amount and frequency: 2 cups of coffee daily Family History Family history of sleep disordered breathing: Yes Family Hx Sleep Apnea: Mother: Snoring (brother), Sleep apnea - Treated, Sibling: Snoring, Sleep apnea - Treated Allergies and Home Medications Drug allergies reviewed: Yes (oxycodone HCI, sulfamethoxazole, trimethoprim) Home medication list reviewed: Yes Allergy and home medication list: Isosorbe Dinate Fenofibrate Fluoxetine Metroprolol Omeprazole Levothyroxine Atorvastatin Amlodipine Timolol Maleate ophthalmic drop Humulin 70/30 Mometasone Furoate, as needed Acetaminophen Alerfex Release supplement Biotin Bupropion XL Review of Systems Cardiovascular: reports: high blood pressure, palpitations, chest pain, leg or foot swelling, have to sleep sitting up Gastrointestinal: reports: heartburn, difficulty swallowing, nausea, diarrhea, abdominal pain Urinary: reports: incontinence, frequency, urgency Neurological: reports: headaches, disorientation, speech dysfunction, gait or balance problems Psychiatric: reports: anxiety, depression, mood disorder Ear/Nose/Throat: reports: sinus problems, dry mouth/throat (every morning), tonsillectomy, wisdom teeth removed Endocrine: reports: thyroid disease, sluggishness, excessive thirst, increased urination, unexplained weakness Musculoskeletal: reports: joint pain, neck pain, back pain, muscle pain or cramping Immunologic: reports: rash, itching, allergies to food or environment Physical Exam Blood Pressure: 148/62 Cuff size: wrist Heart Rate: 52 O2 Saturation: 97 Height: 4 ft 8 in Weight: 110 lb Body Mass Index: 24.6 BMI Classification: Healthy weight Neck circumference: 12.75 (inches) Nostrils: patent to airflow Turbinates: normal Soft palate: long Uvula visualization: 25% Mallampati Class III Tongue: normal in size Tonsils: absent bilaterally Chin and jaw: normal size and position Heart: regular rate and rhythm Lungs: clear bilaterally Impression and Plan 1. Suspected Obstructive Sleep Apnea-Hypopnea Syndrome, as suggested by a history of irregular snoring, morning headache, frequent awakening during the night, unrefreshed sleep, cognitive impairment, and excessive daytime sleepiness. I reviewed with the patient that a narrow oropharynx and obesity are common predisposing factors for obstructive sleep apnea-hypopnea syndrome. I recommend proceeding to polysomnography to confirm the diagnosis and to assess severity. If the patient has significant sleep disordered breathing, a manual CPAP titration study will also be performed to find the optimal treatment pressure. I informed the patient of what the sleep studies involve and after some discussion, obtained agreement to proceed. The pathophysiology of obstructive sleep apnea-hypopnea syndrome was discussed with the patient and health risks of cardiovascular and cerebrovascular disease if not treated. AAS brochure for obstructive sleep apnea-hypopnea syndrome given and reviewed. Risks of drowsy driving discussed in detail and patient advised to avoid long distance driving and to door puller at the first sign of drowsiness. Patient would like to find out about costs to her before she agrees to go forward with the test. * Schedule polysomnography +- manual CPAP titration study and return in 1-2 weeks after the study to discuss result and initiate therapy. * Patient will decide if she would like to go forward with test after determining her costs * Avoid long distance driving or driving when feeling sleepy. * Avoid alcohol, sedative and muscle relaxant around bedtime. * Review instructions provided by trained office staff on how to prepare for the sleep study. * Return for follow-up after sleep study completed. Visit Type: In Office Provider Statement: I spent 100% of the Face to Face Visit with the patient with greater than 50% spent counseling the patient and coordination of care.
== END 2020-06-02 14:57 | disposition home or self-care (01) ==
LOC: SC 14:56
PROVIDERS: ATTEND Nurse Practitioner Family
DX: G47.10 Hypersomnia, unspecified (principal); R41.89 Other symptoms and signs involving cognitive functions and awareness; G47.8 Other sleep disorders; R51.9 Headache, unspecified; R06.83 Snoring
CPT/HCPCS: 99203; G0463; 99212

== ENCOUNTER 2020-07-03 16:09 | Outpatient (CLI) | payer MEDICARE ==
--- NOTE | 2020-07-03 16:37 | CT Report ---
PROCEDURE: HEAD WO INDICATIONS: FREQUENT FALLS TECHNIQUE: Noncontrast 4.5 mm thick angled axial sections acquired from the foramen magnum to the vertex. For r adiation dose reduction, the following was used: automated exposure control, adjustment of mA and/or kV according to patient size. COMPARISON: None. FINDINGS: Image quality: Excellent. The ventricular system and cortical sulci demonstrate atrophy, consistent for patient's stated age. There are areas of hyperintense T2/FLAIR signal in the periventricular and subcortical white matter. There is no acute intra or extra-axial fluid collection. No acute hemorrhage, mass lesion or midlin e shift. Brainstem is unremarkable. There are no areas of restricted diffusion. Globes are symmetr ical. Sinuses are aerated. Osseous structures are intact. Small right frontal scalp hematoma. IMPRESSION: 1. No acute intracranial process. 2. Mild atrophy and chronic microvascular ischemic changes. 3. Small right frontal scalp hematoma. Message was left for Betty Link on 07/03/2020 at 4:34 PM with callback number, as she was not imme diately available for consultation. Reviewed by: Tsering Martinez MD on 07/03/2020 4:35 PM PST Approved by: Tsering Martinez MD on 07/03/2020 4:35 PM PST Station ID: [id number]
== END 2020-07-03 16:10 | disposition home or self-care (01) ==
LOC: DI 16:09
PROVIDERS: ATTEND Physician Assistant Medical
DX: R29.6 Repeated falls (principal); S00.03XA Contusion of scalp, initial encounter

== ENCOUNTER 2020-07-06 03:37 | Outpatient (CLI) | payer MEDICARE | END 2020-07-06 03:38 | disposition EMS.NT | LOC: EMS 03:37 | DX: R25.1 Tremor, unspecified (principal); R61 Generalized hyperhidrosis ==

== ENCOUNTER 2020-07-08 14:36 | Outpatient (CLI) | payer MEDICARE ==
--- NOTE | 2020-07-09 08:58 | XRAY Report ---
PROCEDURE: Hip 1 View RT INDICATIONS: RIGHT HIP PAIN TECHNIQUE: 2 views of the hip were acquired. COMPARISON: CT abdomen/pelvis 08/15/2019. FINDINGS: Bones: No fractures or dislocations. No suspicious bony lesions. The visualized pelvic ring appear s intact. Note is made of symmetric moderate hip joint osteoarthritis with joint space narrowing anitha aterally and mild osteophytic spurring at the upper lateral acetabular margins Soft tissues: No suspicious soft tissue calcifications or masses. IMPRESSION: Bilateral moderate hip joint osteoarthritis, no focal trauma to the osseous structures found. Dependi ng on the clinical status, however, MR scanning may be warranted (noncontrast, screening pelvis) for detection of bone bruising or hidden fracture. MR provides the most accurate method for detection of such injuries. Reviewed by: Manuel Cordero MD on 07/09/2020 8:57 AM PST Approved by: Manuel Cordero MD on 07/09/2020 8:[address] [facility] Station ID: [id number]
== END 2020-07-08 23:59 | disposition home or self-care (01) ==
LOC: DI.WCP 14:36
PROVIDERS: ATTEND Family Medicine
DX: M25.551 Pain in right hip (principal); R29.6 Repeated falls; M16.0 Bilateral primary osteoarthritis of hip

== ENCOUNTER 2020-07-23 08:00 | Outpatient (CLI) | payer MEDICARE ==
[2020-07-23 17:52] LABS: BASOPHILS # (AUTO) 0.1 10^3/uL (0.0-0.1); EOSINOPHILS # (AUTO) 0.3 10^3/uL (0.0-0.7); EOSINOPHILS % (AUTO) 3.8 %; HCT - HEMATOCRIT 39.3 % (37.0-47.0); HGB - HEMOGLOBIN 12.6 g/dL (12.0-16.0); LYMPHOCYTES % (AUTO) 27.8 %; MEAN CORPUSCULAR HEMOGLOBIN 31.7 pg (27.0-31.0); MEAN CORPUSCULAR HGB CONC 32.1 g/dL (32.0-36.0); MEAN CORPUSCULAR VOLUME 98.7 fL (81.0-99.0); MEAN PLATELET VOLUME 11.8 fL (7.9-10.8); MONOCYTES # (AUTO) 0.5 10^3/uL (0.0-1.0); MONOCYTES % (AUTO) 7.3 %; NEUTROPHILS # (AUTO) 4.3 10^3/uL (1.5-6.6); NEUTROPHILS % (AUTO) 59.8 %; PLT - PLATELET COUNT 226 10^3/uL (130-450); RED BLOOD COUNT 3.98 10^6/uL (4.20-5.40); RED CELL DISTRIBUTION WIDTH 13.6 % (12.0-15.0); WHITE BLOOD COUNT 7.2 x10^3/uL (4.8-10.8)
[2020-07-23 19:14] LABS: CHOL/HDL RATIO 6.8 (<4.4); CHOLESTEROL 191 mg/dL; HDL CHOLESTEROL 28 mg/dL; LDL CHOLESTEROL,CALCULATED 119 mg/dL; LDL/HDL RATIO 4.3 (<4.4); TRIGLYCERIDES 218 mg/dL; VLDL CHOLESTEROL 44 mg/dL
== END 2020-07-23 23:59 | disposition home or self-care (01) ==
LOC: LAB.WCP 08:00
PROVIDERS: ATTEND Family Medicine
DX: E11.29 Type 2 diabetes mellitus with other diabetic kidney complication (principal)
CPT/HCPCS: 36415; 80061; 83721; 85025

== ENCOUNTER 2020-11-25 08:00 | Outpatient (CLI) | payer MEDICARE ==
[2020-11-25 12:19] LABS: BASOPHILS # (AUTO) 0.1 10^3/uL (0.0-0.1); BASOPHILS % (AUTO) 1.3 %; EOSINOPHILS # (AUTO) 0.3 10^3/uL (0.0-0.7); EOSINOPHILS % (AUTO) 3.5 %; HCT - HEMATOCRIT 39.4 % (37.0-47.0); HGB - HEMOGLOBIN 12.7 g/dL (12.0-16.0); LYMPHOCYTES # (AUTO) 2.3 10^3/uL (1.5-3.5); MEAN CORPUSCULAR HEMOGLOBIN 31.1 pg (27.0-31.0); MEAN CORPUSCULAR HGB CONC 32.2 g/dL (32.0-36.0); MEAN CORPUSCULAR VOLUME 96.6 fL (81.0-99.0); MEAN PLATELET VOLUME 11.5 fL (7.9-10.8); MONOCYTES # (AUTO) 0.5 10^3/uL (0.0-1.0); MONOCYTES % (AUTO) 7.2 %; NEUTROPHILS # (AUTO) 3.9 10^3/uL (1.5-6.6); NEUTROPHILS % (AUTO) 55.6 %; PLT - PLATELET COUNT 230 10^3/uL (130-450); RED BLOOD COUNT 4.08 10^6/uL (4.20-5.40); RED CELL DISTRIBUTION WIDTH 13.2 % (12.0-15.0); WHITE BLOOD COUNT 7.1 x10^3/uL (4.8-10.8)
[2020-11-25 12:24] LABS: ESTIMATED AVERAGE GLUCOSE 131 mg/dL (70-100); HEMOGLOBIN A1c% 6.2 % (4.27-6.07)
[2020-11-25 12:30] LABS: ALBUMIN 4.1 g/dL (3.2-5.5); ALBUMIN/GLOBULIN RATIO 1.3 (1.0-2.2); ALKALINE PHOSPHATASE 36 IU/L (42-121); ALT ALANINE AMINOTRANSFERASE 46 IU/L (10-60); AST ASPARTATE AMINOTRANSFERASE 78 IU/L (10-42); BILIRUBIN,TOTAL 0.8 mg/dL (0.2-1.0); BUN - BLOOD UREA NITROGEN 34 mg/dL (6-20); CALCIUM 9.4 mg/dL (8.5-10.3); CARBON DIOXIDE - CO2 29 mmol/L (21-32); CHLORIDE 99 mmol/L (101-111); CHOLESTEROL 199 mg/dL; CREATININE 1.5 mg/dL (0.4-1.0); GFR - MDRD 34 (>89); GLUCOSE 127 mg/dL (70-100); HDL CHOLESTEROL 33 mg/dL; LDL CHOLESTEROL,CALCULATED 130 mg/dL; LDL/HDL RATIO 3.9 (<4.4); POTASSIUM 4.4 mmol/L (3.5-5.0); SODIUM 138 mmol/L (135-145); TOTAL PROTEIN 7.3 g/dL (6.7-8.2); TRIGLYCERIDES 182 mg/dL; VLDL CHOLESTEROL 36 mg/dL
[2020-11-25 12:46] LABS: THYROID STIMULATING HORMONE 2.07 uIU/mL (0.34-5.60)
== END 2020-11-25 23:59 | disposition home or self-care (01) ==
LOC: LAB.WCP 08:00
PROVIDERS: ATTEND Family Medicine
DX: E11.29 Type 2 diabetes mellitus with other diabetic kidney complication (principal)
CPT/HCPCS: 36415; 80053; 80061; 83036; 83721; 84443; 85025

== ENCOUNTER 2021-03-30 08:00 | Outpatient (CLI) | payer MEDICARE | END 2021-03-30 23:59 | disposition home or self-care (01) | LOC: LAB.WCP 08:00 | PROVIDERS: ATTEND Family Medicine | DX: R30.0 Dysuria (principal) | CPT/HCPCS: 87086 ==

== ENCOUNTER 2021-04-27 15:24 | Outpatient (CLI) | payer MEDICARE ==
[2021-04-28 09:26] LABS: BASOPHILS # (AUTO) 0.1 10^3/uL (0.0-0.1); BASOPHILS % (AUTO) 1.2 %; EOSINOPHILS # (AUTO) 0.2 10^3/uL (0.0-0.7); EOSINOPHILS % (AUTO) 2.3 %; HCT - HEMATOCRIT 42.5 % (37.0-47.0); HGB - HEMOGLOBIN 13.6 g/dL (12.0-16.0); LYMPHOCYTES # (AUTO) 2.3 10^3/uL (1.5-3.5); LYMPHOCYTES % (AUTO) 25.5 %; MEAN CORPUSCULAR HEMOGLOBIN 32.4 pg (27.0-31.0); MEAN CORPUSCULAR VOLUME 101.2 fL (81.0-99.0); MEAN PLATELET VOLUME 11.6 fL (7.9-10.8); MONOCYTES # (AUTO) 0.7 10^3/uL (0.0-1.0); MONOCYTES % (AUTO) 7.1 %; NEUTROPHILS # (AUTO) 5.9 10^3/uL (1.5-6.6); NEUTROPHILS % (AUTO) 63.7 %; PLT - PLATELET COUNT 293 10^3/uL (130-450); RED CELL DISTRIBUTION WIDTH 13.5 % (12.0-15.0); WHITE BLOOD COUNT 9.2 x10^3/uL (4.8-10.8)
[2021-04-28 10:59] LABS: ALBUMIN 4.7 g/dL (3.2-5.5); ALBUMIN/GLOBULIN RATIO 1.4 (1.0-2.2); ALKALINE PHOSPHATASE 38 IU/L (42-121); ALT ALANINE AMINOTRANSFERASE 62 IU/L (10-60); AST ASPARTATE AMINOTRANSFERASE 94 IU/L (10-42); BUN - BLOOD UREA NITROGEN 33 mg/dL (6-20); CARBON DIOXIDE - CO2 28 mmol/L (21-32); CHLORIDE 100 mmol/L (101-111); CHOL/HDL RATIO 8.7 (<4.4); CHOLESTEROL 252 mg/dL; CREATININE 1.3 mg/dL (0.4-1.0); GFR - MDRD 40 (>89); GLUCOSE 119 mg/dL (70-100); HDL CHOLESTEROL 29 mg/dL; LDL CHOLESTEROL,CALCULATED 166 mg/dL; LDL/HDL RATIO 5.7 (<4.4); POTASSIUM 4.3 mmol/L (3.5-5.0); SODIUM 140 mmol/L (135-145); TRIGLYCERIDES 286 mg/dL; VLDL CHOLESTEROL 57 mg/dL
[2021-04-28 12:49] LABS: ESTIMATED AVERAGE GLUCOSE 143 mg/dL (70-100); HEMOGLOBIN A1c% 6.6 % (4.27-6.07)
== END 2021-04-27 23:59 | disposition home or self-care (01) ==
LOC: LAB.WCP 15:24
PROVIDERS: ATTEND Family Medicine
DX: E11.29 Type 2 diabetes mellitus with other diabetic kidney complication (principal); I25.10 Atherosclerotic heart disease of native coronary artery without angina pectoris
CPT/HCPCS: 36415; 80053; 80061; 83036; 83721; 85025

== ENCOUNTER 2021-10-19 13:19 | Outpatient (CLI) | payer MEDICARE ==
[2021-10-19 17:45] LABS: BASOPHILS # (AUTO) 0.1 10^3/uL (0.0-0.1); BASOPHILS % (AUTO) 0.8 %; EOSINOPHILS # (AUTO) 0.2 10^3/uL (0.0-0.7); EOSINOPHILS % (AUTO) 1.9 %; HCT - HEMATOCRIT 37.5 % (37.0-47.0); HGB - HEMOGLOBIN 12.4 g/dL (12.0-16.0); LYMPHOCYTES # (AUTO) 2.1 10^3/uL (1.5-3.5); LYMPHOCYTES % (AUTO) 25.4 %; MEAN CORPUSCULAR HEMOGLOBIN 31.9 pg (27.0-31.0); MEAN CORPUSCULAR HGB CONC 33.1 g/dL (32.0-36.0); MEAN CORPUSCULAR VOLUME 96.4 fL (81.0-99.0); MEAN PLATELET VOLUME 12.1 fL (7.9-10.8); MONOCYTES # (AUTO) 0.5 10^3/uL (0.0-1.0); MONOCYTES % (AUTO) 6.5 %; NEUTROPHILS # (AUTO) 5.4 10^3/uL (1.5-6.6); PLT - PLATELET COUNT 219 10^3/uL (130-450); RED BLOOD COUNT 3.89 10^6/uL (4.20-5.40); WHITE BLOOD COUNT 8.4 x10^3/uL (4.8-10.8)
[2021-10-19 17:57] LABS: ALBUMIN 3.9 g/dL (3.2-5.5); BILIRUBIN,TOTAL 0.9 mg/dL (0.2-1.0); CALCIUM 9.6 mg/dL (8.5-10.3); CREATININE 1.8 mg/dL (0.4-1.0); POTASSIUM 4.2 mmol/L (3.5-5.0); TOTAL PROTEIN 7.7 g/dL (6.7-8.2)
[2021-10-19 18:12] LABS: THYROID STIMULATING HORMONE 0.91 uIU/mL (0.34-5.60)
== END 2021-10-19 13:20 | disposition home or self-care (01) ==
LOC: LAB.N 13:19
PROVIDERS: ATTEND Nurse Practitioner Family
DX: E03.9 Hypothyroidism, unspecified (principal); Z79.899 Other long term (current) drug therapy
CPT/HCPCS: 36415; 80053; 84443; 85025

== ENCOUNTER 2021-11-26 14:43 | Outpatient (CLI) | payer MEDICARE ==
--- NOTE | 2021-11-26 15:33 | SLEEP CARE CONSULTATION ---
Information from patient questionnaire entered by Yanely Castro MA. I have reviewed and concur with the information entered by Yanely Castro MA. This document represents the service I personally performed and the decisions made by , Nelda Bridges ARNP. History of Present Illness Service Date and Time: 11/26/2021 1443 Reason for follow up: annual (LAST SEEN 05/2020, NON CPAP USER? ) Prior sleep studies: No HPI additional information: SERGIO FELDMAN was last seen in office in May of 2020. We had ordered a sleep study but this was not completed. She returns today for a follow-up. Her current complaint is that she cannot sleep very much. She is awake all the time and only gets about 3 hours a night of sleep. She states she is exhausted all the time and does not wake up feeling rested when she is able to sleep. She states for the past 2 years she has been getting dizzy when she stands up too fast or bends over. She is seeing a .net architect who has her on a front desk monitor presently for two weeks. She was sent back here for evaluation of her fatigue and sleepiness. The patient tells me that she normally goes to bed around 10-12 pm, sometimes earlier, and it takes her approximately few minutes to fall asleep. She has not been told that she snores loudly and irregularly at night. She has not been observed to stop breathing in her sleep. Her bed partner can still sleep in the same bed. She can recall waking up on the average of 2-3 times during the night. Most of the time she wakes up because of need for bathroom. She has not awakened for her own snoring, choking, and having to gasp for air. There is not a lot of tossing and turning in her sleep. Generally she can recall having dreams. She usually wakes up at 0800 and does not feel refreshed. She usually does have a morning headache on a daily basis and stays through the day. During the day she complains of feeling sleepy and fatigued. She has never fallen asleep while driving nor has any accident due to sleepiness. She usually does not take naps during the day. She reports having impaired concentration during the day. There is no somniloquy (sleep talking) but has had some somnambulism (sleep walking). She has never experienced sleep paralysis, cataplexy, or symptoms of restless leg syndrome. Her mother had sleep apnea and her brother also who uses a CPAP. Sleep Study - Results Prior sleep studies: No Subjective Initial [place] Sleepiness Scale score: 2 (in 2020) Allergies and Home Medications Home medication list reviewed: Yes (no changes) Allergy and home medication list: Allergies oxycodone HCl * [From Percocet] Allergy (Intermediate, Verified 04/02/17 15:38) Hallucinations sulfamethoxazole [From Bactrim] Allergy (Verified 04/02/17 15:38) Unknown trimethoprim [From Bactrim] Allergy (Verified 04/02/17 15:38) Unknown Review of Systems Review of systems same as previous: Yes (no changes) Physical Exam Vital signs obtained and entered by: SHINE CASILLAS Blood Pressure: 126/72 (RRSP 16, PULSE 65, LEFT) Cuff size: wrist Heart Rate: 60 O2 Saturation: 97 Height: 4 ft 8 in Weight: 98 lb Body Mass Index: 21.9 BMI Classification: Healthy weight Impression and Plan 1. Suspected Obstructive Sleep Apnea-Hypopnea Syndrome, as suggested by a history of morning headache, frequent awakening during the night, unrefreshed sleep, cognitive impairment, and excessive daytime sleepiness. Narrow oropharynx and obesity are common predisposing factors for obstructive sleep apnea-hypopnea syndrome. I recommend proceeding to polysomnography to confirm the diagnosis and to assess severity. If the patient has significant sleep disordered breathing, a manual CPAP titration study will also be performed to find the optimal treatment pressure. I informed the patient of what the sleep studies involve and after some discussion, obtained agreement to proceed. The pathophysiology of obstructive sleep apnea-hypopnea syndrome was discussed with the patient and health risks of cardiovascular and cerebrovascular disease if not treated. Risks of drowsy driving discussed in detail and patient advised to avoid long distance driving and to order puller at the first sign of drowsiness. Patient agreed to plan. * Schedule polysomnography * Avoid alcohol, sedative and muscle relaxant around bedtime. * Review instructions provided by trained office staff on how to prepare for the sleep study. * Return for follow-up after sleep study completed. Visit Type: In Office Time Spent with Patient (minutes): 21 Provider Statement: I spent 100% of the Face to Face Visit with the patient with greater than 50% spent counseling the patient and coordination of care.
[2021-11-26 15:34] VITALS: BP 126/72
== END 2021-11-26 14:44 | disposition home or self-care (01) ==
LOC: SC 14:43
PROVIDERS: ATTEND Nurse Practitioner Family
DX: G47.10 Hypersomnia, unspecified (principal); R53.83 Other fatigue; G47.8 Other sleep disorders; R51.9 Headache, unspecified; R06.83 Snoring; I10 Essential (primary) hypertension; F32.A Depression, unspecified
CPT/HCPCS: 99203; G0463; 99212

== ENCOUNTER 2022-01-07 07:00 | Outpatient (CLI) | payer MEDICARE ==
[2022-01-08 19:41] LABS: FECAL OCCULT BLOOD (FIT) NEGATIVE (NEGATIVE)
== END 2022-01-07 23:59 | disposition home or self-care (01) ==
LOC: LAB 07:00
PROVIDERS: ATTEND Physician Assistant Medical
DX: K92.1 Melena (principal)
CPT/HCPCS: 82274

== ENCOUNTER 2022-01-17 08:00 | Outpatient (CLI) | payer MEDICARE ==
--- NOTE | 2022-01-17 15:39 | XRAY Report ---
PROCEDURE: Wrist 3 View LT INDICATIONS: WRIST FX TECHNIQUE: 3 views of the wrist were acquired. COMPARISON: Reviews of the left wrist dated 01/03/2022, 12/29/2021 FINDINGS: Bones: Distal radial fracture is redemonstrated. No callus formation. There is diffuse osteopenia. Se david degenerative changes are redemonstrated at the first CMC joint. Soft tissues: No suspicious soft tissue calcifications. IMPRESSION: Unchanged distal radial fracture. No callus visualized to suggest interval healing. Reviewed by: Bree Nair MD on 01/17/2022 3:38 PM PDT Approved by: Bree Nair MD on 01/17/2022 3:38 PM PDT Station ID: [id number]
== END 2022-01-17 23:59 | disposition home or self-care (01) ==
LOC: DI.WOS 08:00
PROVIDERS: ATTEND Physician Assistant
DX: S52.515D Nondisplaced fracture of left radial styloid process, subsequent encounter for closed fracture with routine healing (principal)

== ENCOUNTER 2022-01-19 10:43 | Outpatient (CLI) | payer MEDICARE ==
[2022-01-19] MEDS ORDERED: DIATRIZOATE MEGLU/DIATRIZO SOD 30 ML BOTTLE PO ONE ×2 (11:00→14:34)
--- NOTE | 2022-01-20 09:20 | CT Report ---
PROCEDURE: Abdomen/Pelvis WO INDICATIONS: HEMATOCHEZIA TECHNIQUE: Noncontrast 5 mm thick sections acquired from the diaphragms to the symphysis. 5 mm coronal and sagi ttal reformats were then performed. For radiation dose reduction, the following was used: automated exposure control, adjustment of mA and/or kV according to patient size. COMPARISON: None. FINDINGS: Image quality: Excellent. ABDOMEN: Lung bases: Lung bases are clear. Heart size is normal. Solid organs: Liver and spleen are normal in size. Gallbladder contains a stone. No wall thickening or pericholecystic fluid. Pancreas is normal in contours. No adrenal nodules. Kidneys are normal in size, without hydronephrosis or nephrolithiasis. The right kidney has a large cyst of the inferio r pole measuring 5.7 cm. The left kidney has a 3.0 cm cyst of the inferior pole. Nonobstructing calci fications are noted in both kidneys which are probably vascular calcifications. Peritoneum and bowel: Unenhanced bowel loops demonstrate normal wall thickness and caliber. No free fluid or air. The sigmoid colon has mild diverticulosis with no evidence of diverticulitis. Nodes and vessels: No retroperitoneal or mesenteric adenopathy by size criteria. Aorta and inferior vena cava are normal in caliber. The aorta has atherosclerotic calcifications. Miscellaneous: No ventral hernias. PELVIS: Genitourinary: Bladder wall thickness is normal. Miscellaneous: No inguinal hernias or adenopathy. Bones: No suspicious bony lesions. Multilevel degenerative changes of the lumbar spine with disc bul ges at L3-4, L4-5, and L5-S1 No vertebral body compression fractures. IMPRESSION: 1. No acute abdominal or pelvic abnormality. 2. Simple bilateral renal cysts. 3. Mild diverticulosis. Reviewed by: Edson Waller on 01/20/2022 9:18 AM PDT Approved by: Edson Waller on 01/20/2022 9:18 AM PDT Station ID: [id number]
== END 2022-01-19 10:44 | disposition home or self-care (01) ==
LOC: DI 10:43
PROVIDERS: ATTEND Physician Assistant Medical
DX: K92.1 Melena (principal); N28.1 Cyst of kidney, acquired; K57.30 Diverticulosis of large intestine without perforation or abscess without bleeding
CPT/HCPCS: 74176; Q9963

== ENCOUNTER 2022-02-07 08:00 | Outpatient (CLI) | payer MEDICARE ==
--- NOTE | 2022-02-07 10:51 | XRAY Report ---
PROCEDURE: Wrist 3 View LT INDICATIONS: WRIST PAIN TECHNIQUE: 3 views of the wrist were acquired. COMPARISON: Wrist radiographs 01/17/2022, 12/29/2021. FINDINGS: Bones: Decreased conspicuity of the distal radius fracture. No dislocation. No suspicious bony lesio ns. Bones appear osteopenic. Severe degenerative change at the first CMC joint. Soft tissues: No suspicious soft tissue calcifications. IMPRESSION: Decreased conspicuity of the distal radius fracture suggesting ongoing healing. Bones are osteopenic. Severe DJD at the first CMC joint. Reviewed by: Willem Hart MD on 02/07/2022 10:49 AM PDT Approved by: Willem Hart MD on 02/07/2022 10:49 AM PDT Station ID: [id number]
== END 2022-02-07 23:59 | disposition home or self-care (01) ==
LOC: DI.WOS 08:00
PROVIDERS: ATTEND Physician Assistant
DX: S52.515D Nondisplaced fracture of left radial styloid process, subsequent encounter for closed fracture with routine healing (principal); M85.832 Other specified disorders of bone density and structure, left forearm; M18.12 Unilateral primary osteoarthritis of first carpometacarpal joint, left hand